=== PATIENT | male | born 2000 | race Caucasian/White ===

== ENCOUNTER 2020-06-29 16:37 | Emergency (ER) | payer OTHER, SELFPAY ==
[2020-06-29 17:20] VITALS: BP 101/72; PULSE 97; RESP 14; TEMP 36.9; O2SAT 96; BMI 19.2
--- NOTE | 2020-06-29 17:56 | HMH.EDUTC ---
[facility] [place] Disposition Clinical Impression: Exposure to COVID-19 virus Disposition: Home, Self-Care Condition on Discharge: Good Instructions: Preventing the Spread of Coronavirus Discharge Instructions Additional Instructions: isolate until test results are known to be neg if symptoms worsen return or be seen in ed Referrals: Leonel Cody MD [Primary Care Provider] - Time of Disposition: 18:00 Medical Decision Making - Momo Inquiry Pt receiving controlled substance: No Vital Signs: 06/29/20 17:20 Temperature 98.4 F Temperature Source Oral Pulse Rate [Right Brachial] 97 H Respiratory Rate 14 Blood Pressure [Right Arm] 101/72 L Blood Pressure Mean [Right Arm] 81 Blood Pressure Source [Right Arm] Automatic Cuff Blood Pressure Position [Right Arm] Sitting 02 Sat by Pulse Oximetry 96 Oxygen Delivery Method Room Air Orders (Tests/Meds): ORDERS Category Date Time Status Covid-19 Nasal PCR Sendout Rudi Routine Lab 06/29/20 17:23 Ordered [facility] [place] HPI - General Chief complaint: Urgent Treatment Center Stated complaint: Sore Throat;Fever;Fatigue Time Seen by Provider: 06/29/20 17:57 Mode of Arrival: Ambulatory Source of Information: Patient Limitations: No Limitations Description of Symptoms (Recalled from Triage Doc. by RN): PATIENT C/O FEVER, SORE THROAT, FATIGUE, AND BODY ACHES. EXPOSED TO COVID HEENT Symptoms (Recalled from RN notes): Yes Resp Symptoms (Recalled from RN notes): Yes Skin Symptoms (Recalled from RN notes): No MS Symptoms (Recalled from RN notes): No Functional Status (Recalled from RN notes): WNL - History of Present Illness Provider Complaint: 19 yr old male presnets for covid test. Has been exposed. pt states fever and sore throat - Related Data Allergies Allergy/AdvReac Type Severity Reaction Status Date / Time No Known Allergies Allergy Verified 06/29/20 17:52 - Worker's Comp Is this a Worker's Comp case?: No [facility] History - Hepatitis A Screen Drug use history?: No High risk sexual behaviors?: No History of sexually transmitted infection?: No Currently employed?: No Childcare worker?: No Do you have indoor plumbing?: Yes Do you have electricity?: Yes Attestation statement:: This patient has been screened for Hepatitis A risk factors. I have reviewed the patient's past medical history: Yes - Social History Alcohol Intake: never Occupational Status: other ROS Obtained: Yes Systems reviewed as appropriate & no additional complaints - Constitutional Constitutional: Reports system reviewed and no additional complaints, except as docu, Denies fever(s) - Eyes Eyes: Reports system reviewed and no additional complaints, except as docu, Denies change in vision - ENT Ears, Nose, Mouth, and Throat: Reports system reviewed and no additional complaints, except as docu, Reports sore throat - Cardiovascular Cardiovascular: Reports system reviewed and no additional complaints, except as docu, Denies chest pain - Respiratory Respiratory: Yes system reviewed and no additional complaints, except as docu, No change in phlegm color - Gastrointestinal Gastrointestingal: Reports: system reviewed and no additional complaints, except as docu. Denies: loose stools - Genitourinary Male Genitourinary: Reports system reviewed and no additional complaints, except as docu - Musculoskeletal Musculoskeletal: Reports system reviewed and no additional complaints, except as docu - Integumentary/Breasts Skin/Breast: Reports system reviewed and no additional complaints, except as docu, Denies rash - Neurologic Neurologic: Reports system reviewed and no additional complaints, except as docu, Denies loss of vision - Endocrine Endocrine: Reports system reviewed and no additional complaints, except as docu, Denies fatigue - Hematologic/Lymphatic Henatologic/Lymphatic: Reports system reviewed and no additional complaints, except as docu, Denies lymphadenopathy - Allergic/I
[2020-06-29 18:02] VITALS: BP 101/72; PULSE 97; RESP 14; TEMP 36.9; O2SAT 96
[2020-06-29 18:03] LABS: UTC Strep Screen (Rapid) Negative (Negative)
[2020-07-01 12:38] LABS: Covid-19 Nasal PCR Sendout Lex Positive
--- NOTE | 2020-07-01 12:44 | PC.NURSE ---
Patient notified of positive COVID results.
== END 2020-06-29 18:12 | disposition home or self-care (01) ==
PROVIDERS: Emergency Provider Nurse Practitioner Family; PCP Internal Medicine Adolescent Medicine
DX: U07.1 COVID-19 (principal)
CPT/HCPCS: 87880; 99202; U0004